=== PATIENT | female | born 1930 | race Two or more races ===

== ENCOUNTER 2020-06-04 16:26 | Inpatient (IN) | payer MEDICARE, MEDICAID ==
[~2020-06-04] VITALS: Ht 121.9 cm; Wt 80.7 kg
[2020-06-04 19:40] LABS: BASOPHILS % 0.7 % (0.0-2.0); EOSINOPHILS % 1.6 % (0.0-5.0); HEMATOCRIT. 32.9 % (36.0-48.0); HEMOGLOBIN. 10.4 g/dL (12.0-16.0); LYMPHOCYTES % 20.9 % (20.0-50.0); MEAN CORPUSCULAR HEMOGLOBIN 27.6 pg (28.0-32.0); MEAN CORPUSCULAR VOLUME 87.3 fL (81.0-99.0); MEAN PLATELET VOLUME 7.2 fl (7.4-10.4); MONOCYTES % 11.2 % (2.0-8.0); NEUTROPHILS % 65.6 % (40.0-76.0); PLATELET 349 x1000/uL (130-400); RED BLOOD CELL COUNT 3.76 mill/uL (4.2-5.4); RED CELL DISTRIBUTION WIDTH 25.2 % (11.6-14.6)
[2020-06-04 19:43] LABS: CHLORIDE 103 mEq/L (98-107)
[2020-06-04 19:48] LABS: PARTIAL THROMBOPLASTIN TIME 29.3 sec (23.4-31.0); PROTHROMBIN TIME 10.7 sec (9.6-11.0)
[2020-06-04 21:04] LABS: PLATELET ESTIMATE NORMAL
[2020-06-04] MEDS ORDERED: ACETAMINOPHEN 500MG TABLET PO ONE (22:45)
[2020-06-05 02:00] VITALS: BP 150/70
[2020-06-05] MEDS ORDERED: DEXTROSE 50% WATER 50ML SYRINGE IV PRN (02:00)
[2020-06-05] MEDS ORDERED: ASPI-1497 PO (02:04)
[2020-06-05] MEDS ORDERED: AMLO10TA80 PO (02:04)
[2020-06-05] MEDS: MAGNESIUM/ALUMINUM HYDROXIDE/SIMETHICONE 30ML UDC PO PRN ×2 (03:45→08:50)
[2020-06-05] MEDS: PANTOPRAZOLE 40MG DR TABLET PO SCH (05:35)
[2020-06-05] MEDS: LEVOTHYROXINE SODIUM 137MCG TABLET PO SCH (05:35)
[2020-06-05] MEDS: BLOOD SUGAR DIAGNOSTIC STRIP TEST SCH ×4 (06:04→21:00)
[2020-06-05] MEDS: INSULIN LISPRO 100 UNITS/ML SUBCUT SCH ×4 (06:04→21:00)
[2020-06-05] MEDS: DIPHENHYDRAMINE 50MG CAPSULE PO PRN ×2 (06:41→22:16)
[2020-06-05] MEDS ORDERED: GLYBURIDE 5MG TABLET PO SCH (07:20)
[2020-06-05 07:57] LABS: BASOPHILS % 0.5 % (0.0-2.0); CHLORIDE 102 mEq/L (98-107); HEMOGLOBIN. 9.9 g/dL (12.0-16.0); MEAN CORPUSCULAR HEMOGLOBIN 27.3 pg (28.0-32.0); MEAN PLATELET VOLUME 7.6 fl (7.4-10.4); MONOCYTES % 11.5 % (2.0-8.0); PLATELET 311 x1000/uL (130-400); RED BLOOD CELL COUNT 3.64 mill/uL (4.2-5.4); RED CELL DISTRIBUTION WIDTH 24.9 % (11.6-14.6)
[2020-06-05 08:00] VITALS: BP 155/71
[2020-06-05] MEDS: HYDROCHLOROTHIAZIDE 25MG TABLET PO SCH (08:41)
[2020-06-05] MEDS: ASPIRIN 81MG TABLET PO SCH (08:41)
[2020-06-05] MEDS: METOPROLOL TARTRATE 25MG TABLET PO SCH (08:41)
[2020-06-05] MEDS: AMLODIPINE 10MG TABLET PO SCH (08:41)
[2020-06-05] MEDS: HYDROCODONE/ACETAMINOPHEN 5/325MG TABLET PO PRN ×2 (08:49→22:11)
[2020-06-05 12:00] VITALS: BP 141/63
[2020-06-05 16:00] VITALS: BP 131/47
[2020-06-05] MEDS ORDERED: LACTULOSE 20G/30ML UDC PO NR (17:30)
[2020-06-05 18:08] LABS: CLARITY URINE CLEAR (CLEAR); COLOR URINE YELLOW (YELLOW); KETONES URINE NEGATIVE (NEGATIVE); LEUKOCYTE ESTERASE URINE NEGATIVE (NEGATIVE); NITRITE URINE NEGATIVE (NEGATIVE); OCCULT BLOOD URINE NEGATIVE (NEGATIVE); PROTEIN URINE NEGATIVE (NEGATIVE); SPECIFIC GRAVITY URINE 1.008 (1.005-1.030); UROBILINOGEN URINE 0.2 E.U./dL (0.2-1.0)
[2020-06-05 20:00] VITALS: BP 135/64
[2020-06-06] VITALS: BP 114/58
[2020-06-06 04:00] VITALS: BP_SYST 114; BP_SYST 123; BP_SYST 142; BP_DIAS 58; BP_DIAS 64; BP_DIAS 81
[2020-06-06] MEDS: PANTOPRAZOLE 40MG DR TABLET PO SCH (05:59)
[2020-06-06] MEDS: LEVOTHYROXINE SODIUM 137MCG TABLET PO SCH (05:59)
[2020-06-06] MEDS: INSULIN LISPRO 100 UNITS/ML SUBCUT SCH ×2 (06:02→11:51)
[2020-06-06] MEDS: BLOOD SUGAR DIAGNOSTIC STRIP TEST SCH ×2 (06:02→11:51)
[2020-06-06] MEDS: HYDROCODONE/ACETAMINOPHEN 5/325MG TABLET PO PRN (06:42)
[2020-06-06 07:01] LABS: BASOPHILS % 0.5 % (0.0-2.0); EOSINOPHILS % 3.1 % (0.0-5.0); HEMATOCRIT. 31.6 % (36.0-48.0); HEMOGLOBIN. 9.9 g/dL (12.0-16.0); LYMPHOCYTES % 18.2 % (20.0-50.0); MEAN CORPUSCULAR HEMOGLOBIN 27.7 pg (28.0-32.0); MEAN CORPUSCULAR VOLUME 88.1 fL (81.0-99.0); MEAN PLATELET VOLUME 7.3 fl (7.4-10.4); MONOCYTES % 10.8 % (2.0-8.0); NEUTROPHILS % 67.4 % (40.0-76.0); PLATELET 309 x1000/uL (130-400); RED BLOOD CELL COUNT 3.59 mill/uL (4.2-5.4); RED CELL DISTRIBUTION WIDTH 24.6 % (11.6-14.6)
[2020-06-06 07:09] LABS: CHLORIDE 98 mEq/L (98-107)
[2020-06-06 08:00] VITALS: BP_SYST 121; BP_SYST 134; BP_SYST 154; BP_DIAS 49; BP_DIAS 65; BP_DIAS 67
[2020-06-06] MEDS: HYDROCHLOROTHIAZIDE 25MG TABLET PO SCH (08:33)
[2020-06-06] MEDS: ASPIRIN 81MG TABLET PO SCH (08:33)
[2020-06-06] MEDS: AMLODIPINE 10MG TABLET PO SCH (08:33)
[2020-06-06] MEDS: METOPROLOL TARTRATE 25MG TABLET PO SCH (08:33)
[2020-06-06 10:40] LABS: PLATELET ESTIMATE NORMAL
[2020-06-06 12:05] VITALS: BP 131/62
[2020-06-06 16:00] VITALS: BP 129/58
[2020-06-06] MEDS: MAGNESIUM/ALUMINUM HYDROXIDE/SIMETHICONE 30ML UDC PO PRN (16:07)
[2020-06-06 16:28] VITALS: BP 148/66
== END 2020-06-06 17:12 | disposition home or self-care (01) | DRG 74 ==
LOC: ER 16:26 → 6WST 22:55 → ENRESERV 23:09
PROVIDERS: ADMIT Internal Medicine; ATTEND Internal Medicine
DX: G90.8 Other disorders of autonomic nervous system (principal); J98.11 Atelectasis; E87.1 Hypo-osmolality and hyponatremia; Z68.43 Body mass index [BMI] 50.0-59.9, adult; D64.9 Anemia, unspecified; E03.9 Hypothyroidism, unspecified; E11.9 Type 2 diabetes mellitus without complications; I10 Essential (primary) hypertension; I27.20 Pulmonary hypertension, unspecified; E66.01 Morbid (severe) obesity due to excess calories
CPT/HCPCS: 36415; 71045; 80048; 80053; 81003; 82962; 83036; 83880; 84484; 85025; 93005; 93306; 97116; 97162; 99285; J1815; Q0163